=== PATIENT | female | born 1930 | race Caucasian/White ===

== ENCOUNTER 2020-09-08 11:09 | Emergency (ER) | payer OTHER ==
[~2020-09-08] VITALS: Ht 160 cm; Wt 100.8 kg
[2020-09-08 11:42] LABS: WHITE BLOOD COUNT 7.3 10^3/uL (4.3-11.0)
[2020-09-08 11:43] LABS: BASOPHILS % (AUTO) 1 % (0-10); EOSINOPHILS % (AUTO) 1 % (0-10); HEMATOCRIT 41 % (35-52); HEMOGLOBIN 13.1 G/DL (11.5-16.0); LYMPHOCYTES % (AUTO) 24 % (12-44); MEAN CORPUSCULAR HEMOGLOBIN 27 PG (25-34); MEAN CORPUSCULAR HGB CONC 32 G/DL (32-36); MEAN CORPUSCULAR VOLUME 83 FL (80-99); MEAN PLATELET VOLUME 11.3 FL (7.4-10.4); MONOCYTES % (AUTO) 8 % (0-12); NEUTROPHILS % (AUTO) 66 % (42-75); PLATELET COUNT 236 10^3/uL (130-400)
[2020-09-08 11:44] LABS: BASOPHILS # (AUTO) 0.1 10^3/uL (0.0-0.1); EOSINOPHILS # (AUTO) 0.1 10^3/uL (0.0-0.3); LYMPHOCYTES # (AUTO) 1.7 X 10^3 (1.0-4.0); MONOCYTES # (AUTO) 0.6 X 10^3 (0.0-1.0); NEUTROPHILS # (AUTO) 4.8 X 10^3 (1.8-7.8)
[2020-09-08] MEDS ORDERED: fentaNYL INJECTION 100 MCG/2 ML AMP IVP ONE (12:00)
[2020-09-08] MEDS ORDERED: FUROSEMIDE 40 MG/4 ML INJ (LASIX) IVP ONE (12:00)
[2020-09-08] MEDS ORDERED: ONDANSETRON 4 MG/2 ML (SDV) Z0FRAN IVP ONE (12:00)
--- NOTE | 2020-09-08 12:03 | Diagnostic Imaging Report ---
EXAMINATION: Chest 1 view HISTORY: Chest pain. COMPARISON: None available. FINDINGS: The cardiac silhouette is enlarged. Interstitial and alveolar opacities are scattered throughout the lungs. No large pleural effusion or pneumothorax. No acute osseous abnormalities. IMPRESSION: 1. Cardiomegaly. Interstitial and alveolar opacities throughout the lungs may represent pulmonary edema. Multifocal pneumonia can also this appearance. Recommend correlation with patient history and symptoms. Dictated by: Dictated on workstation # [id number]
[2020-09-08 12:30] LABS: CARBON DIOXIDE 22 MMOL/L (21-32); CHLORIDE 96 MMOL/L (98-107); POTASSIUM 4.3 MMOL/L (3.6-5.0); SODIUM 128 MMOL/L (135-145)
[2020-09-08 12:31] LABS: ALANINE AMINOTRANSFERASE 16 U/L (0-55); ALKALINE PHOSPHATASE 111 U/L (40-136); BILIRUBIN,TOTAL 0.4 MG/DL (0.1-1.0); BUN/CREATININE RATIO 19; CREATININE SERUM 0.53 MG/DL (0.60-1.30); GFR ESTIMATED > 60; GLUCOSE 122 MG/DL (70-105); LIPASE 18 U/L (8-78); TOTAL PROTEIN 6.5 GM/DL (6.4-8.2)
--- NOTE | 2020-09-08 13:01 | ED General ---
General Chief Complaint: Skin/Wound Problems Stated Complaint: RASH Nursing Triage Note: Patient presents to the ED with c/o red raised rash to left upper back and chest pain. She states that she started having pain 2 days ago and her daughter noticed the rash today. She states that she has pain behind her left breast and mid-sternum that is reproducible. Nursing Sepsis Screen: No Definite Risk Source of Information: Patient, Other Exam Limitations: No Limitations History of Present Illness Date Seen by Provider: Sep 08, 2020 Time Seen by Provider: 11:20 Initial Comments Patient is a 89-year-old female with history of congestive heart failure who presents with increased shortness of breath over the past days, leg swelling, and posterior left-sided back pain radiating to anterior chest. Chest pain as deep and worse with deep breathing. It is also worse with palpation. Patient denies nausea vomiting or sweats. Denies fever chills. Does report cough and was evaluated by her PCP 4 days ago and given a Z-Joe which she has completed. No history of CAD, aneurysm, dissection, PE or DVT. Patient is not on anticoagulation therapy. No other acute symptoms or complaints. Timing/Duration: 2-3 Days Severity: Moderate Modifying Factors: improves with Medication Associated Systoms: Denies Symptoms Allergies and Home Medications Allergies Coded Allergies: blue dye (Verified Allergy, Unknown, 09/08/20) colesevelam (Verified Allergy, Unknown, 09/08/20) doxycycline (Verified Allergy, Unknown, 09/08/20) iodine (Verified Allergy, Unknown, 09/08/20) levofloxacin (Verified Allergy, Unknown, 09/08/20) mercury (elemental) (Verified Allergy, Unknown, 09/08/20) mesalamine (Verified Allergy, Unknown, 09/08/20) nitrofurantoin (Verified Allergy, Unknown, 09/08/20) ropinirole (Verified Allergy, Unknown, 09/08/20) Patient Home Medication List Home Medication List Reviewed: Yes Review of Systems Review of Systems Constitutional: see HPI EENTM: see HPI Respiratory: see HPI Cardiovascular: see HPI Gastrointestinal: no symptoms reported Genitourinary: see HPI Musculoskeletal: see HPI Skin: see HPI Psychiatric/Neurological: See HPI, Anxiety Hematologic/Lymphatic: See HPI Immunological/Allergic: see HPI All Other Systems Reviewed Negative Unless Noted: Yes Past Luntexm-Jukqyo-Gizdiw Hx Past Med/Social Hx: Reviewed Nursing Past Med/Soc Hx Patient Social History Alcohol Use: Denies Use Recreational Drug Use: No Smoking Status: Never a Smoker 2nd Hand Smoke Exposure: No Recent Foreign Travel: No Contact w/Someone Who Travel: No Recent Infectious Disease Expo: No Recent Hopitalizations: No Physical Abuse: No Sexual Abuse: No Mistreated: No Fear: No Seasonal Allergies Seasonal Allergies: Yes Past Medical History Surgeries: Yes (Left Hip Replacement, Bialt TKR, Breast biopsy) Hysterectomy, Orthopedic, Tonsillectomy Respiratory: Yes COPD Cardiac: Yes High Cholesterol, Hypertension 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 oz. kg; 39.00 BMI Method: General Appearance: Anxious Eyes: Bilateral Eye Normal Inspection, Bilateral Eye PERRL, Bilateral Eye EOMI HEENT: PERRL/EOMI, Normal ENT Inspection, Pharynx Normal Neck: Full Range of Motion, Supple Respiratory: Decreased Breath Sounds, Rales Cardiovascular: Irregularly Irregular, Tachycardia, Other (peripheral edema of B lower extremities) Gastrointestinal: Soft Back: Normal Inspection, No CVA Tenderness Neurologic/Psychiatric: Alert, Oriented x3 Skin: Normal Color, Warm/Dry, Other (L shingles type rash over left thoracic paravertebral region in dermatomal distribution.) Focused Exam Sepsis Stage: Ruled Out Progress/Results/Core Measures Suspected Sepsis Recent Fever Within 48 Hours: No Infection Criteria Present: Suspected New Infection New/Unexplained Altered Menta: No Sepsis Screen: No Definite Risk SIRS Temperature: Pulse: 105 Respiratory Rate: 20 Laboratory Tests 09/08/20 11:30: White Blood Count 7.3 Blood Pressure 167 /96 Mean: 119 Laboratory Tests 09/08/20 11:30: Creatinine 0.53L, Platelet Count 236, Total Bilirubin 0.4 Results/Orders Lab Results Laboratory Tests Test 09/08/20 11:30 09/08/20 13:21 Range/Units White Blood Count 7.3 4.3-11.0 10^3/uL Red Blood Count 4.91 4.35-5.85 10^6/uL Hemoglobin 13.1 11.5-16.0 G/DL Hematocrit 41 35-52 % Mean Corpuscular Volume 83 80-99 FL Mean Corpuscular Hemoglobin 27 25-34 PG Mean Corpuscular Hemoglobin Concent 32 32-36 G/DL Red Cell Distribution Width 14.6 H 10.0-14.5 % Platelet Count 236 130-400 10^3/uL Mean Platelet Volume 11.3 H 7.4-10.4 FL Immature Granulocyte % (Auto) 0 % Neutrophils (%) (Auto) 66 42-75 % Lymphocytes (%) (Auto) 24 12-44 % Monocytes (%) (Auto) 8 0-12 % Eosinophils (%) (Auto) 1 0-10 % Basophils (%) (Auto) 1 0-10 % Neutrophils # (Auto) 4.8 1.8-7.8 X 10^3 Lymphocytes # (Auto) 1.7 1.0-4.0 X 10^3 Monocytes # (Auto) 0.6 0.0-1.0 X 10^3 Eosinophils # (Auto) 0.1 0.0-0.3 10^3/uL Basophils # (Auto) 0.1 0.0-0.1 10^3/uL Immature Granulocyte # (Auto) 0.0 0.0-0.1 10^3/uL D-Dimer 0.38 0.00-0.49 UG/ML Sodium Level 128 L 135-145 MMOL/L Potassium Level 4.3 3.6-5.0 MMOL/L Chloride Level 96 L 98-107 MMOL/L Carbon Dioxide Level 22 21-32 MMOL/L Anion Gap 10 5-14 MMOL/L Blood Urea Nitrogen 10 7-18 MG/DL Creatinine 0.53 L 0.60-1.30 MG/DL Estimat Glomerular Filtration Rate > 60 BUN/Creatinine Ratio 19 Glucose Level 122 H 70-105 MG/DL Calcium Level 9.0 8.5-10.1 MG/DL Corrected Calcium 9.0 8.5-10.1 MG/DL Total Bilirubin 0.4 0.1-1.0 MG/DL Aspartate Amino Transf (AST/SGOT) 14 5-34 U/L Alanine Aminotransferase (ALT/SGPT) 16 0-55 U/L Alkaline Phosphatase 111 40-136 U/L Troponin I < 0.30 < 0.30 <0.30 NG/ML C-Reactive Protein 0.26 <0.50 MG/DL Pro-B-Type Natriuretic Peptide 2217.0 H <75.0 PG/ML Total Protein 6.5 6.4-8.2 GM/DL Albumin 4.0 3.2-4.5 GM/DL Lipase 18 8-78 U/L My Orders Orders - GILBERT PIERRE DO Cbc With Automated Diff (09/08/20 11:21) Comprehensive Metabolic Panel (09/08/20 11:21) Crp Fs (09/08/20 11:21) Chest 1 View Ap/Pa Only (09/08/20 11:21) Troponin I Fs (09/08/20 11:21) Probnp Fs (09/08/20 11:21) Continuous Ekg Monitoring (09/08/20 11:21) Ekg-Prn For Chest Pain Or Rhyt (09/08/20 11:21) Lipase (09/08/20 11:22) Fentanyl Injection (Sublimaze Injection (09/08/20 12:00) Ondansetron Injection (Zofran Injectio (09/08/20 12:00) Furosemide Injection (Lasix Injection) (09/08/20 12:00) Troponin I Fs (09/08/20 12:50) Fibrin Degradation Products (09/08/20 12:50) Dexamethasone Injection (Decadron Injec (09/08/20 13:45) Medications Given in ED Current Medications Medications Dose Ordered Sig/Stacey Route Start Time Stop Time Status Last Admin Dose Admin Dexamethasone Sodium Phosphate 8 mg ONCE ONCE IV 09/08/20 13:45 09/08/20 13:46 DC 09/08/20 13:42 8 MG Fentanyl Citrate 50 mcg ONCE ONCE IVP 09/08/20 12:00 09/08/20 12:01 DC 09/08/20 12:05 50 MCG Furosemide 40 mg ONCE ONCE IVP 09/08/20 12:00 09/08/20 12:43 DC 09/08/20 12:49 40 MG Ondansetron HCl 4 mg ONCE ONCE IVP 09/08/20 12:00 09/08/20 12:01 DC 11/22/20 12:05 4 MG Vital Signs/I&O 09/08/20 11:15 Temp 36.2 Pulse 105 Resp 20 B/P (MAP) 167/96 (119) Pulse Ox 95 O2 Delivery Room Air Capillary Refill : Less Than 3 Seconds Blood Pressure Mean: 119 Departure Communication (Admissions) CXR: Cardiomegaly with pulmonary vascular congestion. EKG: A. fib, frequent PVCs, rate 104. Repeat troponin, d-dimer, negative. Patient with congestive heart failure. IV Lasix given with adequate diuresis with improved breathing. Patient's breathing comfortably and is able to by supine post treatment. Suspect patient's symptoms, shortness of breath is related to CHF exacerbation with chest wall pain related to shingles. Patient's pain fits distributional pattern. IV Decadron given. Hospital admission for further cardiac admission offered but declined by family and patient. Cardiac causes of chest pain have not been fully ruled out. Patient prefers to follow-up with local PCP. Will treat for CHF and shingles. Return precautions reviewed. Patient verbalizes understanding standing agreement with discharge instructions prior to departure. Impression Primary Impression: Shingles Additional Impression: Congestive cardiac failure Disposition: HOME, SELF-CARE Condition: Stable Departure-Patient Inst. Decision time for Depature: 14:15 Patient Instructions: Heart Failure, Adult (DC), Shingles (DC) Add. Discharge Instructions: Please take an extra dose of Lasix daily for the next 2 days and take newly prescribed medications as directed. Follow-up with your PCP in 3-5 days for reev aluation. Return to the ED if new or worsening symptoms. All discharge instructions reviewed with patient and/or family. Voiced understanding. Scripts Hydrocodone/Acetaminophen (Hydrocodone-Acetamin 5-325 mg) 1 Each Tablet 1 EACH PO Q6H, #10 TAB Prov: GILBERT PIERRE DO 09/08/20 Methylprednisolone (Methylprednisolone Dose Pack) 4 Mg Tab.ds.pk 4 MG PO UD for 6 Days, #21 PKG PER DOSE PACK INSTRUCTIONS Prov: GILBERT PIERRE DO 09/08/20 GILBERT PIERRE DO Sep 08, 2020 13:01
[2020-09-08] MEDS ORDERED: ACHD5005 PO (14:16)
[2020-09-08] MEDS ORDERED: METH4TAB10 PO (14:16)
[2020-09-08 14:33] VITALS: BP 114/70
== END 2020-09-08 14:26 | disposition home or self-care (01) ==
LOC: ER FS 11:12
DX: B02.9 Zoster without complications (principal); I50.9 Heart failure, unspecified; F41.9 Anxiety disorder, unspecified; Z91.041 Radiographic dye allergy status; Z88.1 Allergy status to other antibiotic agents; Z88.8 Allergy status to other drugs, medicaments and biological substances
CPT/HCPCS: 36415; 71045; 80053; 83690; 83880; 84484; 85025; 85379; 86141